=== PATIENT | male | born 2000 | race Caucasian/White ===

== ENCOUNTER 2023-10-30 10:45 | Emergency (ER) | payer OTHER ==
[~2023-10-30] VITALS: Ht 175.3 cm; Wt 117.9 kg
[2023-10-30 13:17] VITALS: BP 162/98; TEMP 98.4; O2SAT 99
== END 2023-10-30 13:17 | disposition home or self-care (01) ==
LOC: ER 10:50
DX: S09.90XA Unspecified injury of head, initial encounter (principal); Z88.0 Allergy status to penicillin; V49.9XXA Car occupant (driver) (passenger) injured in unspecified traffic accident, initial encounter; Y93.89 Activity, other specified; Y92.89 Other specified places as the place of occurrence of the external cause; Y99.8 Other external cause status
CPT/HCPCS: 70450-TC; 72125-TC